=== PATIENT | male | born 1940 | race Caucasian/White ===

== ENCOUNTER 2020-09-17 16:01 | Emergency (ER) | payer MEDICARE, OTHER ==
[2020-09-17 17:19] LABS: HEMOGLOBIN 11.1 gm/dl (14.0-17.5); RED BLOOD COUNT 3.72 M/UL (4.20-5.50); WHITE BLOOD COUNT 5.1 K/UL (4.5-11.0)
[2020-09-17 17:47] LABS: BUN/CREATININE RATIO 14 (0-10)
[2020-09-17] MEDS ORDERED: VIBRAMYCIN 100100 MG PO (19:26)
== END 2020-09-17 19:39 | disposition home or self-care (01) ==
LOC: ER1 16:01
PROVIDERS: Physician Assistant
DX: J18.9 Pneumonia, unspecified organism (principal); E11.9 Type 2 diabetes mellitus without complications; I10 Essential (primary) hypertension; Z20.822 Contact with and (suspected) exposure to COVID-19
CPT/HCPCS: 71045; 80053; 81001; 82550; 82553; 83874; 83880; 84484; 85025; 93005; 99285; U0002

== ENCOUNTER 2021-02-04 00:03 | Emergency (ER) | payer OTHER ==
[~2021-02-04 00:03] MED LIST: VIBRAMYCIN 100100 MG PO
== END 2021-02-04 02:19 | disposition expired ==
LOC: ER1 00:03
DX: I46.9 Cardiac arrest, cause unspecified (principal)
CPT/HCPCS: 92950; 99285